=== PATIENT | male | born 1960 | race Caucasian/White ===

== ENCOUNTER 2016-09-21 10:55 | Day surgery (SDC) | payer BC ==
--- NOTE | ~2016-09-21 | OP ---
Record Of [facility] [address] [place]. [address] NAME: JORGE MARX : 58 STATUS : [facility]#: [id number] AGE: 56 ADM/REG DATE : 09/21/16 MR#: [id number] REPORT SERV DATE: 09/21/16 DICTATED BY: DNOALD GEIGER JR. DATE: 09/21/16 REPORT STATUS : Draft TRANSCRIBED BY: MODL DATE: 09/21/16 DATE OF PROCEDURE: 09/21/2016 SURGEON: Donald Geiger M.D. PREOPERATIVE DIAGNOSIS: Hematuria. POSTOPERATIVE DIAGNOSIS: Hematuria. PROCEDURE PERFORMED: Cystoscopy, retrograde pyelograms bilaterally. COMPLICATIONS: None. CONSULTATIONS: None. ANESTHESIA: General with laryngeal mask airway. SPECIMENS: None. DRAINS: None. ESTIMATED BLOOD LOSS: None. INDICATION: Mr. Marx is a 56-year-old gentleman, who comes today for evaluation of hematuria. He is coming for cystoscopy and retrograde pyelograms bilaterally. PROCEDURE IN DETAIL: After the patient was identified and proper informed consent was obtained, he was taken to the operating room. General anesthesia was performed without complication using a laryngeal mask airway. He was then prepped and draped in a normal sterile fashion in the lithotomy position. 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 The penile bulbous and prostatic urethra were otherwise normal. He did have some trilobar hypertrophy with a 3.5 cm prostatic urethra. The bladder mucosa showed some mild trabeculation but otherwise normal without tumor, diverticula, or stone. Both ureteral orifices were in the normal position and normal size. Retrograde pyelograms were performed using an 8-Korean cone-tipped catheter on both sides. He had a normal course and caliber to the ureters with normal collecting systems bilaterally. There were no filling defects or anything to suggest obstruction. The bladder was drained. The patient was awakened in the operating room and transferred to the postanesthesia care unit in stable condition. I will see him back in 3 to 4 months to recheck a urinalysis. [place] Record Of [facility] [address] [place] [address] NAME: JORGE MARX : 58 STATUS : [facility]#: [id number] AGE: 56 ADM/REG DATE : 09/21/16 MR#: [id number] REPORT SERV DATE: 09/21/16 DICTATED BY: DONALD GEIGER JR. DATE: 09/21/16 REPORT STATUS : Draft TRANSCRIBED BY: MODL DATE: 09/21/16 Donald Geiger Jr., M.D. / [id number] CC: Leatha Infante Jr., M.D.
[~2016-09-21 10:55] MED LIST: ALTA5 PO; LIPITOR20 PO; NORV5 PO; PRILOSEC40 MG PO; ROCALTROL0.25 MCG PO; VITAMIN D31000 UNIT PO
[2016-09-21 11:22] LABS: HEMATOCRIT 38.4 % (40.0-51.0); HEMOGLOBIN 12.6 g/dL (13.6-17.8)
[2016-09-21 11:29] LABS: ASCORBIC ACID (UR NOT ORDER) NEG (NEG); BILIRUBIN, URINE NEGATIVE (NEG); KETONE, URINE NEGATIVE (NEG); LEUKOCYTE ESTERASE(NOT OR NEG (NEG); WBC (NOT ORDERED) (RFLEX) 1 (0-5)
[2016-09-21 11:36] LABS: BUN (BLOOD UREA NITROGEN) 48 MG/DL (6-23); CALCIUM, SERUM 9.2 MG/DL (8.5-10.4); CHLORIDE, SERUM 114 MMOL/L (96-112); CO2 (CARBON DIOXIDE) 23 MMOL/L (24-34); CREATININE 3.12 MG/DL (0.70-1.30); GFR AFRICAN AMERICAN 24 ML/MIN (>=60); GFR NON AFRICAN AMERICAN 21 ML/MIN (>=60); GLUCOSE, SERUM 97 MG/DL (60-99); POTASSIUM, SERUM 4.9 MMOL/L (3.5-5.3); SODIUM, SERUM 147 MMOL/L (135-148)
== END 2016-09-21 16:16 | disposition home or self-care (01) ==
LOC: SDC 10:55
PROVIDERS: Urology
PROC: BT14YZZ Fluoroscopy of Kidneys, Ureters and Bladder using Other Contrast (ICD-10-PCS; principal; 2016-09-21 12:45)
DX: R31.9 Hematuria, unspecified (principal); I12.9 Hypertensive chronic kidney disease with stage 1 through stage 4 chronic kidney disease, or unspecified chronic kidney disease; N18.9 Chronic kidney disease, unspecified; K21.9 Gastro-esophageal reflux disease without esophagitis; G47.33 Obstructive sleep apnea (adult) (pediatric); D64.9 Anemia, unspecified; Z88.5 Allergy status to narcotic agent; Z99.89 Dependence on other enabling machines and devices; Z88.8 Allergy status to other drugs, medicaments and biological substances; Z79.899 Other long term (current) drug therapy
CPT/HCPCS: 74420; 80048; 81001; 85014; 85018; 93005; C1758; J2250; J2405; J3010; Q9967